=== PATIENT | female | born 1985 | race Caucasian/White ===

== ENCOUNTER 2016-06-19 09:52 | Emergency (ER) | payer OTHER ==
[2016-06-19] MEDS ORDERED: 0.9 % SODIUM CHLORIDE 1,000 ML IV ONE ×3 (10:12→11:22)
[2016-06-19] MEDS ORDERED: ONDANSETRON HCL/PF 4 MG/ 2ML VIAL ONE (10:12)
[2016-06-19] MEDS ORDERED: ONDANSETRON HCL/PF 4 MG/ 2ML VIAL IVP ONE ×2 (10:18→11:00)
[2016-06-19 10:33] VITALS: BP 116/71
--- NOTE | 2016-06-19 11:39 | ED Physician Documentation ---
Nausea/Vomiting/Diarrhea - HISTORIAN Historian: patient - HPI Stated Complaint: N/V/D Chief Complaint: Nausea,Vomiting,Diarrhea Onset: hours Severity: moderate Further Comments: yes (30 year old female patient presents with complaints of a hangover from drinking too much last night and states she used marijuana last night. C/O nausea and diarrhea.) - Associated Symptoms Vomiting: frequent Diarrhea: mild - ROS CONST: none CVS/RESP: denies: chest pain, shortness of breath, cough, dry cough, non- productive cough, productive cough, bloody cough, other GI/: none EYES/ENT: none MS/SKIN/LYMPH: denies: joint pain, leg swelling, rash, swollen glands, ankle swelling, other NEURO/PSYCH: none - PAST HX Past History: none Other History: other (depression, anxiety) Surgeries/Procedures: hysterectomy, Allergies/Adverse Reactions: Allergies Allergy/AdvReac Type Severity Reaction Status Date / Time morphine Allergy Severe breathing Verified 06/19/16 10:17 citalopram Allergy Verified 06/19/16 10:17 coconut oil Allergy Verified 06/19/16 10:17 Home Medications: Ambulatory Orders Medication Instructions Recorded DULoxetine HCL [Cymbalta] 30 mg PO DAILY 06/19/16 Mirtazapine [Remeron] 60 mg PO HS 06/19/16 Promethazine HCl [Phenergan] 25 mg PO Q6H PRN #12 tablet 06/19/16 Risperidone [Risperdal] 1 mg PO HS 06/19/16 - SOCIAL HX Smoking History: cigarettes Alcohol Use: heavy Drug Use: marijuana - FAMILY HX Family History: denies: none - VITAL SIGNS Vital Signs: Vital Signs Temp Pulse Resp BP Pulse Ox 98.6 F 65 20 116/71 98 06/19/16 12:26 06/19/16 12:26 06/19/16 12:26 06/19/16 12:26 06/19/16 12:26 - REVIEWED ASSESSMENTS Nursing Assessment Reviewed: Yes Vitals Reviewed: Yes Progress - Progress Progress: 2L NS given while in ER. Patient drove herself to ER. States nausea has resolved after 2 doses of zofran. Patient refuses UA/UDS. Reviewed discharge instructions, verbalized understanding. ED Results Lab/Radiology - Orders Orders: ED Orders Category Date Time Status Place Saline Lock/IV NOW Care 06/19/16 10:18 Active UA W/MICRO IF INDICATED Stat Lab 06/19/16 10:18 Ordered Urine drug screen [DRUG SCREEN URINE MEDICAL ONLY] Stat Lab 06/19/16 Ordered 0.9 % Sodium Chloride [Normal Saline] 1,000 ml Med 06/19/16 10:12 Discontinued IV .STK-MED 0.9 % Sodium Chloride [Normal Saline] 1,000 ml Med 06/19/16 10:18 Discontinued IV NOW 0.9 % Sodium Chloride [Normal Saline] 1,000 ml Med 06/19/16 11:22 Discontinued IV NOW Ondansetron HCl/Pf [Zofran 4 mg/2 ml] Med 06/19/16 10:12 Discontinued 4 mg .ROUTE .STK-MED ONE Ondansetron HCl/Pf [Zofran 4 mg/2 ml] Med 06/19/16 10:18 Discontinued 4 mg IVP NOW ONE Ondansetron HCl/Pf [Zofran 4 mg/2 ml] Med 06/19/16 11:00 Discontinued 4 mg IVP NOW ONE Nausea Physical Exam - EXAM General Appearance: mild distress EENT: eye inspection normal, ENT inspection normal, pharynx normal, no signs of dehydration, YASHIRA, no nystagmus, TM's nml Respiratory: no resp distress, chest non-tender, breath sounds normal CVS: reg rate & rhythm, heart sounds normal, equal pulses, no murmur, no gallop , PMI nml, no JVD, no friction rub, 24 Abdomen: non-tender, no organomegaly Skin: normal color, warm/dry, NR, INT, PAL, DR Neuro/Psych: oriented X3, CN's nml as tested, motor nml, sensation nml, mood/ affect nml Discharge Clincal Impression: Alcohol intake above recommended sensible limits Nausea & vomiting Qualifiers: Vomiting type: unspecified Vomiting Intractability: non-intractable Qualified Code(s): R11.2 - Nausea with vomiting, unspecified Prescriptions: Promethazine HCl [Phenergan] 25 mg PO Q6H PRN #12 tablet PRN Reason: Nausea / Vomiting Referrals: Primary Doctor,No [Primary Care Provider] - 2 Days Additional Instructions: Diagnosis: Nausea and Vomiting related to excessive alcohol intake. Clear liquids, then advance diet as tolerated. Sprite/7-up Juices apple, white grape Gatorade/Powerade Jello Popsicles When tolerating clear liquids, advance to bland diet - such as crackers , rice, bananas or toast A prescription for nausea medication was sent to the pharmacy. Home Medications: Ambulatory Orders DULoxetine HCL [Cymbalta] 30 mg PO DAILY 06/19/16 Mirtazapine [Remeron] 60 mg PO HS 06/19/16 Promethazine HCl [Phenergan] 25 mg PO Q6H PRN #12 tablet 06/19/16 Risperidone [Risperdal] 1 mg PO HS 06/19/16 Condition: Stable Disposition: 01 HOME, SELF-CARE Decision to Admit: NO Decision Time: 11:39
== END 2016-06-19 12:26 | disposition home or self-care (01) ==
LOC: ED 09:52
DX: F10.10 Alcohol abuse, uncomplicated (principal); R11.2 Nausea with vomiting, unspecified
CPT/HCPCS: J2405; J7030; 96361; 96374; 96376; 99283

== ENCOUNTER 2016-08-29 10:15 | Emergency (ER) | payer OTHER ==
[2016-08-29] MEDS ORDERED: 0.9 % SODIUM CHLORIDE 1,000 ML IV ONE (10:37)
[2016-08-29] MEDS ORDERED: ONDANSETRON HCL/PF 4 MG/ 2ML VIAL IVP ONE (10:37)
--- NOTE | 2016-08-29 10:39 | ED Physician Documentation ---
General Adult - HISTORIAN Historian: patient - HPI Stated Complaint: Vomiting, diarrhea, chest pain Chief Complaint: General Adult Onset: days ago (2) Timing: still present Severity: moderate Further Comments: yes (Pt is a 30 yo female with n/v/diarrhea x 2 days. Pt also has had recent dx UTI and vag infection, for which she started taking Flagyl and Bactrim yesterday.) - ROS CONST: other (malaise) EYES/ENT: none CVS/RESP: chest pain (chest/upper abd) GI/: abdominal pain (mild - mod) MS/SKIN/LYMPH: none - PAST HX Past History: other (GERD) Surgeries/Procedures: , hysterectomy Allergies/Adverse Reactions: Allergies Allergy/AdvReac Type Severity Reaction Status Date / Time morphine Allergy Severe breathing Verified 08/29/16 10:30 citalopram Allergy Verified 08/29/16 10:30 coconut oil Allergy Verified 08/29/16 10:30 Home Medications: Ambulatory Orders Medication Instructions Recorded Esomeprazole Magnesium [Nexium] 40 mg PO DAILY 08/29/16 Ondansetron HCl Rapdis [Zofran Odt] 4 mg PO Q8 #10 tab 08/29/16 Sulfamethoxazole/Trimethoprim 1 tab PO BID 08/29/16 [Bactrim DS] metroNIDAZOLE [Flagyl] 500 mg PO TID 08/29/16 - SOCIAL HX Smoking History: cigarettes - FAMILY HX Family History: No - VITAL SIGNS Vital Signs: Vital Signs Temp Pulse Resp BP Pulse Ox 98.2 F 69 16 119/75 100 08/29/16 10:29 08/29/16 10:29 08/29/16 10:29 08/29/16 10:29 08/29/16 10:29 - REVIEWED ASSESSMENTS Nursing Assessment Reviewed: Yes Vitals Reviewed: Yes Progress - Progress Progress: Zofran 4 mg IV NS 1.5 L IVF Phenergan 25 mg IV (in IVF) improved. Rx Zofran 4 mg po q 8 h prn #10. - EKG/XRAY/CT EKG: rhythm (Normal sinus arrhythmia, HR=69) ED Results Lab/Radiology - Orders Orders: ED Orders Category Date Time Status Continuous EKG monitoring Q30M Care 08/29/16 10:35 Ordered Continuous Pulse Oximetry Q30M Care 08/29/16 10:[address] Saline Lock/IV NOW Care 08/29/16 10:35 Ordered CBC/PLATELET/DIFF Routine Lab 08/29/16 10:35 Ordered CMP Routine Lab 08/29/16 10:35 Ordered CREATINE KINASE Routine Lab 08/29/16 10:35 Ordered TROPONIN I (cTnI) Stat Lab 08/29/16 10:35 Ordered NORMAL SALINE @ 1000 MLS/HR ( 1000ml BOLUS) Med 08/29/16 10:37 Ordered 0.9 % Sodium Chloride [Normal Saline] 1,000 ml IV Q1H Ondansetron HCl/Pf [Zofran 4 mg/2 ml] Med 08/29/16 10:37 Once 4 mg IVP NOW ONE EKG WITH COMPARISON Stat Ther 08/29/16 10:35 Ordered General Adult Physical Exam - PHYSICAL EXAM GENERAL APPEARANCE: mild distress EENT: pharynx normal NECK: normal inspection, supple RESPIRATORY: no resp distress, chest non-tender, breath sounds normal CVS: reg rate & rhythm, heart sounds normal ABDOMEN: soft, no organomegaly, normal bowel sounds, tenderness (diffuse mild abd tendeness) BACK: normal inspection, no CVA tenderness SKIN: warm/dry, normal color EXTREMITIES: non-tender, normal range of motion, no evidence of injury NEURO: oriented X3, motor nml, sensation nml Discharge Clincal Impression: Nausea & vomiting Qualifiers: Vomiting type: unspecified Vomiting Intractability: non-intractable Qualified Code(s): R11.2 - Nausea with vomiting, unspecified Prescriptions: Ondansetron HCl Rapdis [Zofran Odt] 4 mg PO Q8 #10 tab Referrals: Primary Doctor,No [Primary Care Provider] - Home Medications: Ambulatory Orders Esomeprazole Magnesium [Nexium] 40 mg PO DAILY 08/29/16 Ondansetron HCl Rapdis [Zofran Odt] 4 mg PO Q8 #10 tab 08/29/16 Sulfamethoxazole/Trimethoprim [Bactrim DS] 1 tab PO BID 08/29/16 metroNIDAZOLE [Flagyl] 500 mg PO TID 08/29/16 Condition: Good Disposition: 01 HOME, SELF-CARE Decision to Admit: NO Decision Time: 12:15
[2016-08-29 11:02] LABS: BASOPHILS % 0.3 (0.0-1.5); EOSINOPHILS % 3.6 % (0.0-6.8); MEAN CORPUSCULAR HEMOGLOBIN 33.7 pg (28.0-34.0); MEAN CORPUSCULAR VOLUME 98.2 fl (80.0-100.0); MONOCYTES % 3.4 % (0.0-11.0); NEUTROPHILS # 10.1 # k/uL (1.4-7.7)
[2016-08-29 11:04] LABS: eGFR (African) > 60; eGFR (Non-African) > 60
[2016-08-29] MEDS ORDERED: 0.9 % SODIUM CHLORIDE 500 ML IV ONE (11:24)
[2016-08-29] MEDS ORDERED: PROMETHAZINE HCL 25 MG in 0.9 % SODIUM CHLORIDE 50 ML IV ONE (11:26)
[2016-08-29 12:27] VITALS: BP 95/46
[2016-08-30 05:54] LABS: APPEARANCE,URINE CLOUDY (CLEAR); COLOR,URINE YELLOW (YELLOW); OCCULT BLOOD,URINE 2+ (NEGATIVE); PH URINE 6.5 (5.0 - 8.0); UROBILINOGEN URINE 0.2 Eu (0.2-1.0)
== END 2016-08-29 12:25 | disposition home or self-care (01) ==
LOC: ED 10:15
DX: R11.2 Nausea with vomiting, unspecified (principal)
CPT/HCPCS: 80053; 81002; 82550; 84484; 85025; 93005; J2405; J2550; J7030; J7060; 96361; 96374; 96375; 99283; S1016

== ENCOUNTER 2016-09-05 13:05 | Emergency (ER) | payer OTHER ==
[2016-09-05] MEDS ORDERED: PROMETHAZINE HCL 25 MG/ML VIAL ONE (14:02)
--- NOTE | 2016-09-05 14:04 | ED Physician Documentation ---
General Adult - HISTORIAN Historian: patient - HPI Stated Complaint: abdominal pain, N/V/D Chief Complaint: General Adult Additional Information: hx pud n/e gastric distress hyperventillating at this time w/ numbness tingline spasm hands feet-nurses ssay this did not happen while in waiting room. has appt gastroenterologists tomorrow [place] Onset: other (this condition recurrent - here in ed freq for similar./ has rx for nexium but vomits it up. continues to smoke and do the approx 3 x per week) Timing: worse Severity: moderate - ROS CONST: recent illness EYES/ENT: denies: problems with vision CVS/RESP: other (hyperventillating at present deep and approx 35 per minute) GI/: abdominal pain, vomiting, nausea, diarrhea (with phenergan suppositories) . denies: problems urinating NEURO/PSYCH: anxiety, other (hyper ventillating gerd pud hypothryoid). denies: headache, fainting - PAST HX Past History: other (pud hypothryoid substance abuse) Surgeries/Procedures: hysterectomy Allergies/Adverse Reactions: Allergies Allergy/AdvReac Type Severity Reaction Status Date / Time morphine Allergy Severe breathing Verified 09/05/16 13:19 citalopram Allergy Verified 09/05/16 13:19 coconut oil Allergy Verified 09/05/16 13:19 Home Medications: Ambulatory Orders Medication Instructions Recorded Esomeprazole Magnesium [Nexium] 40 mg PO DAILY 08/29/16 Promethazine HCl [Phenergan] 12.5 mg PO Q4H PRN #6 tablet 09/05/16 - SOCIAL HX Smoking History: greater than 1 pack/day Alcohol Use: none Drug Use: marijuana - FAMILY HX Family History: No - VITAL SIGNS Vital Signs: Vital Signs Temp Pulse Resp BP Pulse Ox 97.9 F 66 28 H 130/81 99 09/05/16 13:20 09/05/16 13:20 09/05/16 13:20 09/05/16 13:20 09/05/16 13:20 - REVIEWED ASSESSMENTS Nursing Assessment Reviewed: Yes Vitals Reviewed: Yes General Adult Physical Exam - PHYSICAL EXAM GENERAL APPEARANCE: moderate distress EENT: eye inspection normal NECK: normal inspection RESPIRATORY: breath sounds normal CVS: reg rate & rhythm, heart sounds normal ABDOMEN: soft, tenderness SKIN: warm/dry, normal color. No: cyanosis, diaphoresis, jaundice, mottled EXTREMITIES: non-tender, normal range of motion, other (pt states tingling and sl spasm of hands and feet-explained due to hypervetillation) NEURO: oriented X3, motor nml, sensation nml, depressed mood/affect Discharge Clincal Impression: Peptic ulcer disease, substance abuse-thc and cigs Home Medications: Ambulatory Orders Esomeprazole Magnesium [Nexium] 40 mg PO DAILY 08/29/16 Promethazine HCl [Phenergan] 12.5 mg PO Q4H PRN #6 tablet 09/05/16 Condition: Fair Disposition: 01 HOME, SELF-CARE Decision to Admit: NO Decision Time: 14:20
[2016-09-05] MEDS ORDERED: PROMETHAZINE HCL 25 MG/ML VIAL IM ONE (14:07)
[2016-09-05 14:26] VITALS: BP 126/79
[2016-09-06 05:51] LABS: AMPHETAMINE NEGATIVE ng/mL (<1000); BARBITURATES NEGATIVE ng/mL (<300); CANNABINOIDS NON NEGATIVE ng/mL (<50); COCAINE NEGATIVE ng/mL (<150); METHAMPHETAMINE NEGATIVE ng/mL (<1000); METHYLENEDIOXYMETHAMPHETAMINE NEGATIVE ng/mL (<500)
[2016-09-06 07:07] LABS: COLOR,URINE YELLOW (YELLOW)
[2016-09-06 07:08] LABS: APPEARANCE,URINE CLEAR (CLEAR); OCCULT BLOOD,URINE 3+ (NEGATIVE); PH URINE 6.5 (5.0 - 8.0); UROBILINOGEN URINE 0.2 Eu (0.2-1.0)
== END 2016-09-05 14:24 | disposition home or self-care (01) ==
LOC: ED 13:05
DX: K27.9 Peptic ulcer, site unspecified, unspecified as acute or chronic, without hemorrhage or perforation (principal); F17.210 Nicotine dependence, cigarettes, uncomplicated; F12.10 Cannabis abuse, uncomplicated
CPT/HCPCS: 80377; 81002; J2550; 96374; 99283; G0481

== ENCOUNTER 2016-12-08 10:44 | Outpatient (CLI) | payer SELFPAY | END 2016-12-08 10:45 | LOC: LAB 10:44 | PROVIDERS: ATTEND Physician Assistant | DX: E03.9 Hypothyroidism, unspecified (principal) | CPT/HCPCS: 36415; 84439; 84443 ==